=== PATIENT | female | born 1980 | race Hispanic/Latino ===

== ENCOUNTER 2019-09-29 06:21 | Day surgery (SDC) | payer BC ==
[2019-09-28 13:45] LABS: Specific Gravity 1.015 (1.005-1.030)
--- OUTSIDE RECORDS SUMMARY | 2019-09-29 06:23 | XMS REPORT | Continuity of Care Document ---
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 [facility] on ent Clinics URI, acute URI, acute Diagnosis Active [facility] Acute Acute Diagnosis Active [facility] pharyngiti pharyngiti Swetha kes - s, s, Memoria unspecifie unspecifie l d etiology d etiology Ou [facility]pati ent Clinics Blood in Blood in Diagnosis Active [facility] stool stool [facility] Epigastric Epigastric Diagnosis Active [facility] Daily Daily Diagnosis Active [facility] headache headache [facility] Diarrhea, Diarrhea, Diagnosis Active [facility] unspecifie unspecifie Swetha kes - d type d type [facility] Allergies, Adverse Reactions, Alerts This patient has no known allergies or adverse reactions. Medications Ordered Filled Start Stop Current Ordering Indication Dosage Frequency Signature Comments Components Source Medication Medication Date Date Medication? Clinician (SIG) Name Name Elvira Felix 2019- No Cherise [address] [facility] 5-10 05-20 [facility] cough [facility] 00 :00 [facility] Clinics Augmentin Augmentin 2018- No Cherise [address] [facility] 5-10 05-20 [facility] :00 [facility] ent Clinics Procedures This patient has no known procedures. Encounters Start End Encounter Admission Attending Care Care Encounter Source Date/Time Date/Time Type Type Clinicians Facility Department ID 2018-08-08 2018-08-08 Outpatient Ana M Funes [id number] [facility] [facility] Medicine Outpati ent Clinics Results This patient has no known results.
[2019-09-29] MEDS ORDERED: Ringers Lactate 1,000 ML IV ONE (06:58)
[2019-09-29] MEDS ORDERED: VASOPRESSIN 20 UNIT/ML VIAL ONE (07:11)
[2019-09-29] MEDS ORDERED: propofoL 200 MG/20 ML VIAL IV ONE (07:15)
[2019-09-29] MEDS ORDERED: FENTANYL CITR 100 MCG/2 ML ONE (07:15)
[2019-09-29] MEDS ORDERED: LIDOCAINE 2% MPF 5 ML VIAL ONE (07:16)
[2019-09-29] MEDS ORDERED: ROCURONIUM 50 MG/5 ML VIAL IV ONE (07:16)
[2019-09-29] MEDS ORDERED: dexAMETHasone 10 MG/ML VIAL ONE (07:16)
[2019-09-29] MEDS ORDERED: MIDAZOLAM HCL 2 MG/2 ML INJ ONE (07:16)
[2019-09-29] MEDS: CEFAZOLIN/SWI 2gm 2 GM/20 ML SYR ONE ×2 (07:47→07:55)
[2019-09-29] MEDS: CEFAZOLIN/SWI 1gm 1 GM/10 ML SYR ONE ×2 (07:48→07:55)
[2019-09-29] MEDS ORDERED: KETOROLAC 30 MG/ML INJ ONE (08:27)
[2019-09-29] MEDS ORDERED: NEOSTIGMINE 1 MG/ML -5 ML ONE (08:31)
[2019-09-29] MEDS ORDERED: GLYCOPYRROLATE 0.2 MG/ML SYR ONE (08:31)
[2019-09-29] MEDS: HYDROMORPHONE HCL 1 MG/ML INJ ONE ×2 (08:46→08:51)
[2019-09-29] MEDS ORDERED: ONDANSETRON 4 MG/2 ML VIAL ONE (08:55)
[2019-09-29] MEDS ORDERED: MEPERIDINE HCL 25 MG/ML SYR ONE ×2 (09:02→09:14)
[2019-09-29] MEDS ORDERED: PROMETHAZINE INJ 25 MG/ML AMP ONE (09:24)
[2019-09-29 09:49] VITALS: TEMP 96.8
[2019-09-29] MEDS ORDERED: HYDROCODONE/APAP 5/325 MG TAB PO ONE (10:07)
[2019-09-29] MEDS ORDERED: HYDROCODONE/APAP 5/325 MG TAB ONE (10:13)
[2019-09-29 10:30] VITALS: O2SAT 96
[2019-09-29 11:18] VITALS: BP 125/70
--- NOTE | 2019-09-29 18:50 | OP ---
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 Preoperative Diagnosis: Menorrhagia ( Abnormal uterine bleeding due to ovulatory dysfunction). Postoperative Diagnosis: Menorrhagia ( Abnormal uterine bleeding due to ovulatory dysfunction). Procedure Performed: Diagnostic hysteroscopy, endometrial ablation with NovaSure. Anesthesia: General endotracheal. Specimens: No specimens. Complications: No complications. Drains: No drains. Condition: Stable. Findings: The ablation effect. The cavity was empty. Endometrium was thin, the ablation setting. The cavity length was set at 6.5 cm, although it measured 7 under direct hysteroscopy. The cavity wi dth was 3.7 cm, the power was 132 de jesus and there was a 50 second ablation cycle without interruption . There was an excellent ablation effect. The uterine cavity was inspected postablation. After rinsing the endometrial cavity with the saline, the gurinder was mostly excessive gurinder and the cavi ty was mostly rinsed out. Description Of Procedure: The patient is a 38-year-old 4, para 4, with 5 living children, pr esented with heavy menstrual bleeding, failed medical management. She had endometrial sampling proce dure done in the office and there is no atypia or malignancy seen. Discussed about the different opt ions of IUD versus levonorgestrel IUD versus ablation, proceeded with an ablation as this is which sh e preferred. The cavity length was also much longer, although that was not an absolute contraindicat ion for the IUD. She is morbidly obese and all the risk factors were explained to the patient and the patient was cons ented for an ablation. She was brought to the OR, 3 g of Ancef were given preop. She was taken back to OR, placed in supine fashion on operative table, general anesthesia given, placed in a dorsal lit hotomy position using Evan stirrups. The vulva vagina and perineum prepped and draped in a sterile fashion. The speculum placed to expose the cervix. Anterior lip grasped with 2 Allis clamps. Diagn ostic SlimLine hysteroscope used for hysteroscopy and the cavity was well visualized. No intracavita ry lesions seen. The scope was pulled out after measuring the top of the fundus to the external os a nd then from the internal os to external os. The calculation was done sounding length 11, cervical l ength 4 cm, on the NovaSure device the max length was 6.5 cm, so this was set at 6.5 cm for cavity li jose. After all the readings were entered into the generator, the device was taken, prepped and inser eder into the uterine cavity. The fan was deployed. The width was assessed at 3.7 cm. Occluder was used to occlude the external os. Cavity integrity test was done and after it passed, ablation cycle was started. 50 seconds in an interrupted ablation cycle was conducted. Then, the device was undepl oyed in the usual fashion. After this was removed, diagnostic hysteroscopy was performed again and a fter good visualization and rinsing the cavity, there was excellent ablation effect globally from jennifer e base of 1 ostium to the other and all the way from the fundus to the internal os, slightly above th e internal os. The instruments were removed. Instrument and sponge counts were done and were correc t at the end of case. The patient tolerated the procedure well. She will follow up with me in 3 weeks. No further antibiotics need indicated. She will be sent with prescription for Bailey. ADONIS/NILSA Voice ID: [id number] Report ID: [id number]
== END 2019-09-29 11:15 | disposition home or self-care (01) ==
LOC: OR 06:21
PROVIDERS: ATTEND Obstetrics & Gynecology
PROC: 0U5B8ZZ Destruction of Endometrium, Via Natural or Artificial Opening Endoscopic (ICD-10-PCS; principal; 2019-09-29 07:30)
DX: N92.0 Excessive and frequent menstruation with regular cycle (principal); N94.6 Dysmenorrhea, unspecified; E66.01 Morbid (severe) obesity due to excess calories; Z68.43 Body mass index [BMI] 50.0-59.9, adult; Z11.59 Encounter for screening for other viral diseases; E28.8 Other ovarian dysfunction
CPT/HCPCS: 81025; 58563; U0002; J2704; J2550; J2250; J3010; J1100; J2175 ×2; J1170; J2710; J0690 ×2; J7120; J2405